=== PATIENT | male | born 1970 | race Caucasian/White ===

== ENCOUNTER 2016-05-21 15:45 | Emergency (ER) | payer SELFPAY ==
[~2016-05-21] VITALS: Ht 167.6 cm; Wt 79.5 kg
[2016-05-21] MEDS ORDERED: KETOROLAC TROMETHAMINE 60 MG/2 ML VIAL IM ONE (18:30)
[2016-05-21] MEDS ORDERED: METHOCARBAMOL 500 MG TABLET PO ONE (18:30)
[2016-05-21 20:03] VITALS: BP 117/70
== END 2016-05-21 20:11 | disposition home or self-care (01) ==
LOC: EMS 15:47
DX: S46.911A Strain of unspecified muscle, fascia and tendon at shoulder and upper arm level, right arm, initial encounter (principal); M77.11 Lateral epicondylitis, right elbow; X58.XXXA Exposure to other specified factors, initial encounter; Y93.67 Activity, basketball; Y92.89 Other specified places as the place of occurrence of the external cause; Y99.8 Other external cause status
CPT/HCPCS: 73060; 73090; 96372; 99284; J1885